=== PATIENT | male | born 1990 | race Caucasian/White ===

== ENCOUNTER 2019-12-10 04:57 | Emergency (ER) | payer SELFPAY ==
[~2019-12-10] VITALS: Ht 188 cm; Wt 220.0 kg
[2019-12-10 06:21] LABS: HEMOGLOBIN 15.3 g/dl (14.0-18.0); IMMATURE GRANULOCYTES 0.1 % (0.0-5.0); MEAN CORPUSCULAR HGB 29.9 pG CALC (26.0-32.0); NEUT# 4.55 thou/uL (1.82-7.42); RED BLOOD COUNT 5.11 mill/uL (4.70-6.10); RED CELL DISTRI WIDTH 12.4 % (11.5-15.5)
[2019-12-10 06:23] LABS: HEMATOCRIT 46.3 % (39.0-50.0); MEAN CELL VOLUME 90.6 fL CALC (80.0-100.0)
[2019-12-10 06:23] LABS: URINE BILIRUBIN - DIPSTICK NEGATIVE (NEGATIVE); URINE BLOOD DIPSTICK NEGATIVE (NEGATIVE); URINE COLOR YELLOW; URINE GLUCOSE - DIPSTICK NEGATIVE (NEGATIVE); URINE KETONE NEGATIVE (NEGATIVE); URINE LEUK ESTERASE NEGATIVE (NEGATIVE); URINE NITRITE - DIPSTICK NEGATIVE (Negative); URINE PH 6.5 (4.5-8.0); URINE PROTEIN - DIPSTICK NEGATIVE (NEG-TRACE); URINE UROBILINOGEN - DIPSTICK 0.2 E.U./dL (0.2)
[2019-12-10 06:34] LABS: ALBUMIN 4.4 g/dL (3.2-5.0); ANION GAP 12 (6-22 (CALC)); BILIRUBIN, TOTAL 0.4 mg/dL (0.0-1.4); BUN 8 mg/dL (9-20); BUN/CREATININE RATIO 8 (12-20 (CALC)); CARBON DIOXIDE 28 mmol/l (22-30); CHLORIDE 105 mmol/l (95-108); GFR > 60 ML/MIN (>=60 (CALC)); GFR FOR AFR.AMER. > 60 ML/MIN (>=60 (CALC)); LIPASE 61 u/l (23-300); POTASSIUM 4.4 mmol/l (3.5-5.1); SGOT/AST 33 u/l (17-59); SODIUM 140 mmol/l (137-146)
[2019-12-10 06:39] LABS: ALKALINE PHOSPHATASE 107 u/l (38-126)
[2019-12-10 06:46] LABS: MYOGLOBIN 33 ng/mL (0 - 121)
[2019-12-10] MEDS ORDERED: PROTONIX40 M2 PO (07:34)
[2019-12-10 07:43] VITALS: BP 114/57
== END 2019-12-10 07:43 | disposition home or self-care (01) | DRG 313 ==
LOC: ED 04:57
PROVIDERS: Emergency Medicine
DX: R07.89 Other chest pain (principal); K21.9 Gastro-esophageal reflux disease without esophagitis

== ENCOUNTER 2019-12-19 02:04 | Emergency (ER) | payer SELFPAY ==
[~2019-12-19] VITALS: Ht 188 cm; Wt 110.0 kg
[~2019-12-19 02:04] MED LIST: PROTONIX40 M2 PO
[2019-12-19] MEDS ORDERED: MECLIZINE25 MG PO ×2 (02:22→03:54)
[2019-12-19] MEDS ORDERED: SERTRALINE25 MG PO (02:22)
[2019-12-19 03:02] LABS: HEMATOCRIT 48.1 % (39.0-50.0); HEMOGLOBIN 15.5 g/dl (14.0-18.0); IMMATURE GRANULOCYTES 0.2 % (0.0-5.0); MEAN CELL VOLUME 92.7 fL CALC (80.0-100.0); MEAN CORPUSCULAR HGB 29.9 pG CALC (26.0-32.0); MEAN CORPUSCULAR HGB CONC 32.2 g/dL CAL (32.0-36.0); NEUT# 2.1 thou/uL (1.82-7.42); RED BLOOD COUNT 5.19 mill/uL (4.70-6.10)
[2019-12-19 03:06] LABS: URINE BLOOD DIPSTICK SMALL (NEGATIVE); URINE COLOR YELLOW; URINE GLUCOSE - DIPSTICK NEGATIVE (NEGATIVE); URINE KETONE NEGATIVE (NEGATIVE); URINE LEUK ESTERASE NEGATIVE (NEGATIVE); URINE NITRITE - DIPSTICK NEGATIVE (Negative); URINE PH 5.5 (4.5-8.0); URINE PROTEIN - DIPSTICK NEGATIVE (NEG-TRACE); URINE SPECIFIC GRAVITY >=1.030; URINE UROBILINOGEN - DIPSTICK 0.2 E.U./dL (0.2)
[2019-12-19 03:18] LABS: URINE BILIRUBIN - DIPSTICK NEGATIVE (NEGATIVE)
[2019-12-19 03:22] LABS: URINE SQUAMOUS EPITHELIAL CELL FEW EPI/hpf (0-FEW); URINE WBC 0-2 WBC/hpf (0-5)
[2019-12-19 03:24] LABS: ALBUMIN 4.5 g/dL (3.2-5.0); ALKALINE PHOSPHATASE 92 u/l (38-126); AMYLASE 47 u/l (30-110); ANION GAP 12 (6-22 (CALC)); BILIRUBIN, TOTAL 0.5 mg/dL (0.0-1.4); BUN 10 mg/dL (9-20); BUN/CREATININE RATIO 10 (12-20 (CALC)); CARBON DIOXIDE 29 mmol/l (22-30); CHLORIDE 103 mmol/l (95-108); GFR > 60 ML/MIN (>=60 (CALC)); GFR FOR AFR.AMER. > 60 ML/MIN (>=60 (CALC)); LIPASE 62 u/l (23-300); POTASSIUM 4.1 mmol/l (3.5-5.1); SGOT/AST 53 u/l (17-59); SODIUM 139 mmol/l (137-146); TOTAL PROTEIN 7.3 g/dL (6.3-8.2)
[2019-12-19 03:29] LABS: INTERNATIONAL NORMALIZED RATIO 1.1 RATIO (0.7-1.3); PROTHROMBIN TIME 10.9 SECONDS (9.0-12.5)
[2019-12-19 03:33] LABS: D-DIMER 0.17 mg/L (0.19-0.60)
[2019-12-19] MEDS ORDERED: AMOX/K CLAV875 M1 PO ×2 (03:54)
[2019-12-19] MEDS ORDERED: ZOFRAN4 MG/TAB PO (03:54)
[2019-12-19 03:58] VITALS: BP 126/70
--- NOTE | 2019-12-20 08:11 | NUR ---
Notified patient of positive Covid results. Patient sates he is having some shortness of breath. Advised patient to return to ED for evaluation. Advised patient to quarantine, except for medical visits, until contacted by the [facility] with further instructions. Patient verbalized understanding.
== END 2019-12-19 04:00 | disposition home or self-care (01) ==
LOC: ED 02:04
DX: U07.1 COVID-19 (principal); R11.2 Nausea with vomiting, unspecified; R19.7 Diarrhea, unspecified; J32.9 Chronic sinusitis, unspecified; H65.93 Unspecified nonsuppurative otitis media, bilateral; K21.9 Gastro-esophageal reflux disease without esophagitis; R42 Dizziness and giddiness; E66.9 Obesity, unspecified
CPT/HCPCS: S0164

== ENCOUNTER 2019-12-22 08:45 | Observation (INO) | payer SELFPAY ==
[~2019-12-22] VITALS: Ht 188 cm; Wt 155.0 kg
[~2019-12-22 08:45] MED LIST changes: +AMOX/K CLAV875 M1 PO; +MECLIZINE25 MG PO; +SERTRALINE25 MG PO; +ZOFRAN4 MG/TAB PO
--- NOTE | 2019-12-22 08:58 | NUR ---
pt to room for exam
--- NOTE | 2019-12-22 09:05 | NUR ---
UNABLE TO OBTAIN PULSE OX DURING TRIAGE, SHANNON ROGERS NOTIFIED AND DR. HOOVER
[2019-12-22 09:35] LABS: HEMOGLOBIN 15.5 g/dl (14.0-18.0); IMMATURE GRANULOCYTES 0.2 % (0.0-5.0); MEAN CORPUSCULAR HGB 29.7 pG CALC (26.0-32.0); NEUT# 2.39 thou/uL (1.82-7.42); RED BLOOD COUNT 5.22 mill/uL (4.70-6.10); RED CELL DISTRI WIDTH 12.9 % (11.5-15.5)
[2019-12-22 09:51] LABS: ACT PARTIAL THROMBO TIME 26.2 SECONDS (20.0-32.5); PROTHROMBIN TIME 10.2 SECONDS (9.0-12.5)
[2019-12-22 09:53] LABS: ALBUMIN 4.3 g/dL (3.2-5.0); ALKALINE PHOSPHATASE 83 u/l (38-126); AMYLASE 43 u/l (30-110); ANION GAP 13 (6-22 (CALC)); BILIRUBIN, TOTAL 0.6 mg/dL (0.0-1.4); BUN 12 mg/dL (9-20); BUN/CREATININE RATIO 14 (12-20 (CALC)); C-REACTIVE PROTEIN < 0.5 mg/dL (0-0.9); CARBON DIOXIDE 25 mmol/l (22-30); CHLORIDE 104 mmol/l (95-108); CREATININE 0.9 mg/dL (0.7-1.3); GFR > 60 ML/MIN (>=60 (CALC)); GFR FOR AFR.AMER. > 60 ML/MIN (>=60 (CALC)); LIPASE 65 u/l (23-300); POTASSIUM 3.9 mmol/l (3.5-5.1); SGOT/AST 39 u/l (17-59); SODIUM 138 mmol/l (137-146)
[2019-12-22 10:02] LABS: MYOGLOBIN 34 ng/mL (0 - 121)
[2019-12-22 10:07] LABS: D-DIMER 0.2 mg/L (0.19-0.60)
--- NOTE | 2019-12-22 11:01 | NUR ---
PULSE OXIMETRY READING 98% ON PORTABLE MONITOR. PT HAS BEED TO CT AND BACK, HAS BEEN UPDATED RESULTS HAVE BEEN MADE KNOWN. PT IN NO DISTRESS, RESTS IN THE STRETCHER.
--- NOTE | 2019-12-22 11:22 | NUR ---
SBAR PRINTED TO FLOOR
--- NOTE | 2019-12-22 12:15 | NUR ---
PT ARRIVED TO THE FLOOR VIA VIA WC. ACCOMPANIED BY ER STAFF. PT AMBULATED FROM WHEELCHAIR TO BED. VS OBTAINED AND PT ORIENTED TO ROOM. CALL SALINAS WITHIN REACH. SAFETY PRECAUTIONS IN PLACE. WILL CONTINUE TO MONITOR.
--- NOTE | 2019-12-22 12:26 | NUR ---
PT TAKEN TO ROOM 283 WITHOUT INCIDENT, REPORT WAS TO BLANCA ROGERS.
--- NOTE | 2019-12-22 12:40 | NUR ---
PT RESTING IN BED, ALERT AND ORIENTED. ASSESSMENT COMPLETED. RESPIRATIONS ARE EVEN AND UNLABORED ON RA. LUNG ARE CLEAR/DIMINISHED. PEDAL PULSES ARE WEAK. PT REPORTS ACHING PAIN MIDSTERNAL AREA RATING IT A 3/10. TELE PLACED ON PT. PT PROVIDE WITH A SANDWICH, YOGURT, AND APPLE JUICE PER REQUEST. #20 LH FLUSHED AND INFUSING NS. PT DENIES ANY FURTHER NEEDS AT THIS. PT ENCOURAGED TO CALL FOR ASSISTANCE. WILL CONTINUE TO MONITOR.
[2019-12-22 12:43] VITALS: BP 114/71
[2019-12-22 14:55] VITALS: BP 103/72
--- NOTE | 2019-12-22 16:50 | NUR ---
PT RESTING IN BED, NO S/S OF DISTRESS AT THIS TIME. SAFETY PRECAUTIONS IN PLACE. WILL CONTINUE TO MONTIOR.
--- NOTE | 2019-12-22 19:15 | NUR ---
REPORT FROM BLANCA ROGERS. PT NOTED RESTING IN BED WITH EYES CLOSED. PT WAKES EASILY. ALERT AND ORIENTED X3. NO APPARENT RESPIRATORY DISTRESS NOTED. PT DENIES ANY PAIN OR SOB AT THIS TIME. IV SITE APPEARS HEALTHY WITH IVF INFUSING WITHOUT DIFFICULTY. BORDERER IN PLACE. DISCUSSED POC. PT VERBALIZED UNDERSTANDING. NO CURRENT WANTS OR NEEDS. CALL LIGHT WITHIN REACH. WILL CONTINUE TO MONITOR.
[2019-12-22 19:30] VITALS: BP 120/75
[2019-12-22 23:53] VITALS: BP 109/56
[2019-12-22 23:54] VITALS: BP 115/70
--- NOTE | 2019-12-22 23:54 | NUR ---
PT NOTED RESTING IN BED. RESPIRATIONS EVEN AND UNLABORED. NO APPARENT DISTRESS NOTED. PT DENIES ANY PAIN OR SOB AT THIS TIME. NO CURRENT WANTS OR NEEDS. CALL LIGHT WITHIN REACH. WILL CONTINUE TO MONITOR.
[2019-12-23 03:50] VITALS: BP 107/53
--- NOTE | 2019-12-23 04:44 | NUR ---
PT MEDICATED WITH PRN APAP FOR HEADACHE. SNACKS PROVIDED UPON REQUEST. NO OTHER CURRENT WANTS OR NEEDS. CALL LIGHT WITHIN REACH. WILL CONTINUE TO MONITOR.
[2019-12-23 05:10] LABS: HEMATOCRIT 50.2 % (39.0-50.0); HEMOGLOBIN 16.3 g/dl (14.0-18.0); IMMATURE GRANULOCYTES 0.3 % (0.0-5.0); MEAN CELL VOLUME 90.5 fL CALC (80.0-100.0); MEAN CORPUSCULAR HGB 29.4 pG CALC (26.0-32.0); MEAN CORPUSCULAR HGB CONC 32.5 g/dL CAL (32.0-36.0); NEUT# 2.49 thou/uL (1.82-7.42); RED BLOOD COUNT 5.55 mill/uL (4.70-6.10); RED CELL DISTRI WIDTH 12.6 % (11.5-15.5)
[2019-12-23 05:22] LABS: ALBUMIN 4.5 g/dL (3.2-5.0); ALKALINE PHOSPHATASE 80 u/l (38-126); ANION GAP 15 (6-22 (CALC)); BILIRUBIN, TOTAL 0.6 mg/dL (0.0-1.4); BUN 9 mg/dL (9-20); BUN/CREATININE RATIO 13 (12-20 (CALC)); CARBON DIOXIDE 22 mmol/l (22-30); CHLORIDE 109 mmol/l (95-108); CREATININE 0.7 mg/dL (0.7-1.3); GFR > 60 ML/MIN (>=60 (CALC)); GFR FOR AFR.AMER. > 60 ML/MIN (>=60 (CALC)); SGOT/AST 39 u/l (17-59); SODIUM 141 mmol/l (137-146); TOTAL PROTEIN 7.5 g/dL (6.3-8.2)
[2019-12-23 05:37] LABS: POTASSIUM 4.8 mmol/l (3.5-5.1)
[2019-12-23 08:31] VITALS: BP 115/67
--- NOTE | 2019-12-23 08:31 | NUR ---
RECIEVED REPORT FROM JANET SCHOFIELD. PT RESTING IN SEMI FOLWERS POSITION UPON ENTERING ROOM. INTRODUCED SELF TO PT AND DISCUSSED POC. PT IS A/O X3. ASSESSMENT AND VITALS COMPLETED AT THIS TIME. BP 115/67, HR 69, O2 95% ON ROOM AIR. RESPIRATIONS ARE EVEN AND UNLABORED WITH NO SIGNS OF DISTRESS NOTED. LUNG SOUNDS ARE DIMINISHED. HEART RHYTHM IS NORMAL WITH TELE IN PLACE. BOWEL SOUNDS ARE ACTIVE IN ALL QUADRANTS, LAST REPORTED BM 12/22/2019. RADIAL AND PEDAL PULSES ARE STRONG WITH NORMAL CAPILLARY REFILL. #20G IN RH RUNNING WITH FLUIDS PER ORDER, SITE APPEARS HEALTHY AND PATENT. PT COMPLAINS OF 5/10 MID STERNAL PAIN. PT STATES " ITS THE SAME PAIN AT BEFORE. "WRITTER EXPAINED THAT NO PAIN MEDICATIONS WERE ORDERED AND MD WAS TO BE NOTIFIED. PT VERBAILZED UNDERSTANDING. MD TO BE NOTIFIED OF PAIN.PT DENIES OF ANY OTHER PAINS OR DISCOMFORTS AT THIS TIME. ALL SAFETY PRECAUTIONS ARE IN PLACE WITH CALL LIGHT INREACH. WILL CONTINUE TO MONITOR
[2019-12-23 10:50] VITALS: BP 120/63
--- NOTE | 2019-12-23 11:46 | NUR ---
MOTRIN ADMINISTERED TO ASSIST WITH PAIN AT THIS TIME RESUTLING IN 06/14. RESPIRATIONS ARE EVEN AND UNLABORED WITH NO SIGNS OF DISTRESS NOTED. ALL SAFTEY PRECAUTIONS ARE IN PLACE WITH CALL LIGHT IN REACH. ALL SAFETY AND ISOLATION PRECAUTIONS ARE IN PLACE WITH CALL LIGHT IN REACH. WILL CONTINUE TO MONITOR
--- NOTE | 2019-12-23 13:54 | NUR ---
REASSESSMENT OF PAIN AT THIS TIME RESULTING IN 2/. RESPIRATIONS ARE EVEN AND UNLABORED WITH NO SIGNS OF DISTRESS NOTED. PT DENIES OF ANY OTHER PAINS OR DISCOMFORTS AT THIS TIME. ALL SAFETY PRECAUTIONS ARE IN PLACE WITH CALL LIGHT IN REACH. WILL CONTINUE TO MONITOR
--- NOTE | 2019-12-23 15:17 | NUR ---
PT COMPLAINS OF NAUSEA AT THIS TIME. ZOFRAN PO ADMINISTERED. PT TOLERATED WELL. RESPIRATIONS ARE EVEN AND UNLABORED WITH NO SIGNS OF DISTRESS NOTED. PT STATES " MY CHEST PAIN IS JUST AN ACHE RIGHT NOW. ALL SAFTEY AND ISOLATION PRECAUTIONS ARE IN PLACE WITH CALL LIGHT IN REACH. WILL CONTINUE TO MONITOR
[2019-12-23 15:29] VITALS: BP 109/65
--- NOTE | 2019-12-23 16:15 | NUR ---
PT RESTING IN SEMI FOLWERS POSITION WITH EYES CLOSED. RESPIRATIONS ARE EVEN AND UNLABORED WITH NO SIGNS OF DISTRESS NOTED. PT REPORTS NAUSEA STILL AT THIS TIME. ALL SAFETY PRECAUTIONS ARE IN PLACE WIHT CALL LIGHT IN REACH. ALL SAFETY PRECAUTIONS ARE IN PLACE WITH CALL LIGHT IN REACH. WILL CONTINUE TO MONITOR
[2019-12-23] MEDS ORDERED: AUGMENTIN XR PO (16:22)
--- NOTE | 2019-12-23 17:01 | NUR ---
PT EDUCATED ON DISCHARGE INSTRUCTIONS. PT VERBAILZED UNDERSTANDING. PT THEN STATED " IM, STILL FEELING NAUSEA, IS THAT NORMAL." HERNANDO RHOADESRP NOTFIED. ADDITIONAL DOSE OF ZOFRAN ORDERED. PT STATES " I HAVE ANXITEY ATTACKS AT TIME AND WAKE UP SWEATY AND SICK TO MY STOMACH." WRITTER ASKED IF HE HAD ANXITEY ON GOING HOME. PT DENIED. RESPIRATIONS ARE EVEN AND UNLABORED WITH NO SIGNS OF DISTRESS NOTED. ALL SAFTEY PRECAUTIONS ARE IN PLACE WITH CALL LIGHT IN REACH. WILL CONTINUE TO MONITOR
--- NOTE | 2019-12-23 17:40 | NUR ---
ADDITIONAL DOSE OF ZOFRAN ORDERED. PT INFORMS WRITTER THAT HE HAS NOT VOIDED TODAY. WRITTER ENCOURAGED PT TO GO TO BATHROOM AND ATTEMPT TO VOID. PT EDUCATED ON IF NOT ABLE TO VOID. BLADDER SCAN WOULD HAVE TO BE COMPLETED AND POSSIBLE CATHERIZATION. PT VERBAILZED UNDERSTANIND. WRITTER ASSISTED PT TO BATHROOM. ENCOURAGED TO CALL FOR ASSISTANCE. ALL [facility] PRECAUIOTNS ARE IN PLACE WIHT CALL LIGHT IN REACH.WILL CONTINUE TO MONITOR
--- NOTE | 2019-12-23 17:46 | NUR ---
PT VOIDED AT THIS TIME. WRITTER ASSISTED PT BACK INTO BED. RESPIRATIONS ARE EVEN AND UNLABORED WITH NO SIGNS OF DISTRESS NOTED. ALL SAFETY PERCAUTIONS ARE IN PLACE WIHT CALL LIGHT IN REACH. WILL CONTINUE TO MONITOR
--- NOTE | 2019-12-23 17:51 | NUR ---
DR RASHID CONTACTED ABOUT PT DISCHARGE STATUS AND REPORTING OF NAUSEA. WRITTER ORDERED TO STILL DISCHARGE.
--- NOTE | 2019-12-23 17:55 | NUR ---
PT NOTIFIED OF DISCHARGE AT THIS TIME. PT VERBAILZED UNDERSTANDING. IV REMOVED WITH [facility] STILL INTACT. AWAITING FOR TRANSPORTATION AT THIS TIME. ALL SAFETY PRECAUTIONS ARE IN PLACE WITH CALL LIGHT IN REACH.PT DENIES ANY QUESTIONS ON DISCHARGE INSTRUCTIONS. ALL SAFTEY PRECAUTIONS ARE IN PLACE WITH CALL LIGHT IN REACH. WILL CONTINUIE TO MONITOR
--- NOTE | 2019-12-23 18:24 | NUR ---
Discharge instructions given. Patient verbalizes understanding of same. Discharged in stable condition via Wheelchair to Home with . All belongings sent with pt. PT DISCHARGED HOME VIA WHEELCHAIR IN STABLE CONDITION ACCOMPIANED BY TATIANA NEWMAN. PT DISCHARGE WITH ALL BELONGINGS AND DISCHARGE PAPERWORK.
== END 2019-12-23 18:24 | disposition home or self-care (01) | DRG 177 ==
LOC: ED 08:45 → MS2 11:25
PROVIDERS: Nurse Practitioner Family; ADMIT Internal Medicine; ATTEND Internal Medicine
DX: U07.1 COVID-19 (principal); J12.89 Other viral pneumonia; R07.9 Chest pain, unspecified; E66.9 Obesity, unspecified; K21.9 Gastro-esophageal reflux disease without esophagitis; F32.9 Major depressive disorder, single episode, unspecified
CPT/HCPCS: G0378; J1650; Q9967

== ENCOUNTER 2019-12-26 00:53 | Emergency (ER) | payer SELFPAY ==
[~2019-12-26] VITALS: Ht 188 cm; Wt 158.0 kg
[~2019-12-26 00:53] MED LIST changes: +AUGMENTIN XR PO
[2019-12-26] MEDS ORDERED: ONDANSETRON4 MG PO (01:33)
[2019-12-26] MEDS ORDERED: PROTONIX40 M2 PO (01:33)
[2019-12-26 01:52] LABS: HEMATOCRIT 48.5 % (39.0-50.0); IMMATURE GRANULOCYTES 0.4 % (0.0-5.0); MEAN CELL VOLUME 88.2 fL CALC (80.0-100.0); MEAN CORPUSCULAR HGB 29.1 pG CALC (26.0-32.0); NEUT# 5.34 thou/uL (1.82-7.42); RED BLOOD COUNT 5.5 mill/uL (4.70-6.10); RED CELL DISTRI WIDTH 13.2 % (11.5-15.5)
[2019-12-26 02:05] LABS: ALBUMIN 4.1 g/dL (3.2-5.0); ALKALINE PHOSPHATASE 76 u/l (38-126); AMYLASE 44 u/l (30-110); BILIRUBIN, TOTAL 0.7 mg/dL (0.0-1.4); BUN 11 mg/dL (9-20); BUN/CREATININE RATIO 13 (12-20 (CALC)); CARBON DIOXIDE 26 mmol/l (22-30); CHLORIDE 105 mmol/l (95-108); CREATININE 0.8 mg/dL (0.7-1.3); GFR > 60 ML/MIN (>=60 (CALC)); GFR FOR AFR.AMER. > 60 ML/MIN (>=60 (CALC)); LIPASE 48 u/l (23-300); SGOT/AST 41 u/l (17-59); SODIUM 137 mmol/l (137-146); TOTAL PROTEIN 6.8 g/dL (6.3-8.2)
[2019-12-26 02:07] LABS: ANION GAP 10 (6-22 (CALC)); POTASSIUM 3.8 mmol/l (3.5-5.1)
[2019-12-26] MEDS ORDERED: CODEINE/GUAIFEN1 SOL PO (05:08)
[2019-12-26 05:25] VITALS: BP 120/78
== END 2019-12-26 05:25 | disposition home or self-care (01) | DRG 177 ==
LOC: ED 00:53
DX: U07.1 COVID-19 (principal); J12.89 Other viral pneumonia; R07.89 Other chest pain; R11.2 Nausea with vomiting, unspecified; K21.9 Gastro-esophageal reflux disease without esophagitis; F32.9 Major depressive disorder, single episode, unspecified; E66.9 Obesity, unspecified
CPT/HCPCS: S0164

== ENCOUNTER 2020-11-04 01:24 | Emergency (ER) | payer OTHER ==
[~2020-11-04] VITALS: Ht 188 cm; Wt 159.0 kg
[~2020-11-04 01:24] MED LIST changes: +CODEINE/GUAIFEN1 SOL PO; +ONDANSETRON4 MG PO
[2020-11-04 07:20] LABS: ALBUMIN 4.5 g/dL (3.2-5.0); ALKALINE PHOSPHATASE 90 u/l (38-126); AMYLASE 50 u/l (30-110); ANION GAP 10 (6-22 (CALC)); BILIRUBIN, TOTAL 0.6 mg/dL (0.0-1.4); BUN 12 mg/dL (9-20); BUN/CREATININE RATIO 12 (12-20 (CALC)); CARBON DIOXIDE 30 mmol/l (22-30); CHLORIDE 102 mmol/l (95-108); GFR > 60 ML/MIN (>=60 (CALC)); GFR FOR AFR.AMER. > 60 ML/MIN (>=60 (CALC)); HEMATOCRIT 47.6 % (39.0-50.0); HEMOGLOBIN 15.5 g/dl (14.0-18.0); IMMATURE GRANULOCYTES 0.1 % (0.0-5.0); LIPASE 43 u/l (23-300); MEAN CORPUSCULAR HGB 30.7 pG CALC (26.0-32.0); MEAN CORPUSCULAR HGB CONC 32.6 g/dL CAL (32.0-36.0); NEUT# 5.2 thou/uL (1.82-7.42); POTASSIUM 3.7 mmol/l (3.5-5.1); RED BLOOD COUNT 5.05 mill/uL (4.70-6.10); RED CELL DISTRI WIDTH 12.8 % (11.5-15.5); SGOT/AST 32 u/l (17-59); SODIUM 139 mmol/l (137-146); TOTAL PROTEIN 7.7 g/dL (6.3-8.2)
[2020-11-04 07:21] LABS: MEAN CELL VOLUME 94.3 fL CALC (80.0-100.0)
[2020-11-04 10:00] VITALS: BP 128/88
[2020-11-04] MEDS ORDERED: ZOFRAN4 MG/TAB PO (10:01)
== END 2020-11-04 10:10 | disposition home or self-care (01) | DRG 392 ==
LOC: ED 01:24
PROVIDERS: Family Medicine
DX: R10.84 Generalized abdominal pain (principal); K21.9 Gastro-esophageal reflux disease without esophagitis; F32.9 Major depressive disorder, single episode, unspecified; Z86.16 Personal history of COVID-19; Z20.822 Contact with and (suspected) exposure to COVID-19
CPT/HCPCS: Q9967

== ENCOUNTER 2020-11-15 04:18 | Emergency (ER) | payer OTHER ==
[~2020-11-15] VITALS: Ht 188 cm; Wt 156.0 kg
[2020-11-15 05:46] LABS: HEMATOCRIT 46.4 % (39.0-50.0); IMMATURE GRANULOCYTES 0.1 % (0.0-5.0); MEAN CELL VOLUME 94.1 fL CALC (80.0-100.0); MEAN CORPUSCULAR HGB 30.4 pG CALC (26.0-32.0); MEAN CORPUSCULAR HGB CONC 32.3 g/dL CAL (32.0-36.0); NEUT# 3.9 thou/uL (1.82-7.42); RED BLOOD COUNT 4.93 mill/uL (4.70-6.10); RED CELL DISTRI WIDTH 12.9 % (11.5-15.5)
[2020-11-15 05:55] LABS: ALBUMIN 4.2 g/dL (3.2-5.0); ALKALINE PHOSPHATASE 80 u/l (38-126); ANION GAP 12 (6-22 (CALC)); BUN 16 mg/dL (9-20); BUN/CREATININE RATIO 15 (12-20 (CALC)); CARBON DIOXIDE 28 mmol/l (22-30); CHLORIDE 103 mmol/l (95-108); GFR > 60 ML/MIN (>=60 (CALC)); GFR FOR AFR.AMER. > 60 ML/MIN (>=60 (CALC)); POTASSIUM 4.2 mmol/l (3.5-5.1); SGOT/AST 42 u/l (17-59); SODIUM 139 mmol/l (137-146); TOTAL PROTEIN 7.3 g/dL (6.3-8.2)
[2020-11-15 05:57] LABS: BILIRUBIN, TOTAL 0.3 mg/dL (0.0-1.4)
[2020-11-15 06:08] LABS: MYOGLOBIN 135 ng/mL (0 - 121)
[2020-11-15 06:32] LABS: D-DIMER 0.17 mg/L (0.19-0.60)
[2020-11-15] MEDS ORDERED: TORADOL PO (06:37)
[2020-11-15 07:42] VITALS: BP 113/77
== END 2020-11-15 07:35 | disposition home or self-care (01) | DRG 206 ==
LOC: ED 04:18
PROVIDERS: Family Medicine
DX: M94.0 Chondrocostal junction syndrome [Tietze] (principal); R09.1 Pleurisy; K21.9 Gastro-esophageal reflux disease without esophagitis; F32.9 Major depressive disorder, single episode, unspecified; F17.210 Nicotine dependence, cigarettes, uncomplicated; Z86.16 Personal history of COVID-19

== ENCOUNTER 2024-05-06 20:13 | Emergency (ER) | payer OTHER ==
[~2024-05-06] VITALS: Ht 188 cm; Wt 187.0 kg
[~2024-05-06 20:13] MED LIST changes: +TORADOL PO
[2024-05-06] MEDS ORDERED: IBUPROFEN 600 MG/TAB PO ONE (20:45)
[2024-05-06] MEDS ORDERED: ACETAMINOPHEN 500 MG TAB PO ONE (20:45)
[2024-05-06] MEDS ORDERED: HYDROcodone POLISTIREX/CHLORPH 5 ML UDC PO ONE (20:45)
[2024-05-06 20:55] LABS: BASO% 0.6 % (0-3); EOS% 0.5 % (0-8); HEMOGLOBIN 15.6 g/dl (14.0-18.0); IMMATURE GRANULOCYTES 0.1 % (0.0-5.0); LYMPH% 4.9 % (15-41); MEAN CELL VOLUME 92.1 fL CALC (80.0-100.0); MEAN CORPUSCULAR HGB 29.9 pG CALC (26.0-32.0); MEAN CORPUSCULAR HGB CONC 32.5 g/dL CAL (32.0-36.0); MONO% 10.6 % (2-13); NEUT# 6.58 thou/uL (1.82-7.42); NEUT% 83.3 % (42-76); RED BLOOD COUNT 5.21 mill/uL (4.70-6.10); RED CELL DISTRI WIDTH 12.8 % (11.5-15.5)
[2024-05-06 22:06] VITALS: BP 125/69
== END 2024-05-06 22:06 | disposition home or self-care (01) | DRG 866 ==
LOC: ED 20:13
PROVIDERS: Family Medicine
DX: B34.9 Viral infection, unspecified (principal); M94.0 Chondrocostal junction syndrome [Tietze]; I10 Essential (primary) hypertension; K21.9 Gastro-esophageal reflux disease without esophagitis; F32.A Depression, unspecified; Z86.16 Personal history of COVID-19; Z72.0 Tobacco use; Z20.822 Contact with and (suspected) exposure to COVID-19